=== PATIENT | female | born 2000 | race Caucasian/White ===

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

== ENCOUNTER 2024-04-12 07:17 | Day surgery (SDC) | payer OTHER ==
[2024-04-05 14:29] VITALS: BP 110/69
[~2024-04-12] VITALS: Ht 160 cm; Wt 77.3 kg
[~2024-04-12 07:17] MED LIST changes: +FAMOTIDINE 20 MG/ 2 ML VIAL IV SCH; +IBLOOD GLUCOSE TEST STRIP 1 EA TEST VI PRN; +LACTATED RINGER'S 1,000 ML IV SCH; +LIDOCAINE HCL 1% 5 ML SDV INJ ONE; +METOCLOPRAMIDE HCL 10 MG/2 ML SDV IV SCH; +PREDNISONE20 MG PO; +VENLAFAXINE H37.5 M1 PO; +ZITHROMAX250 MG PO
[2024-04-12 07:43] VITALS: BP 119/76
[2024-04-12] MEDS ORDERED: fentaNYL citrate 100 MCG/2 ML VIAL ONE (09:23)
[2024-04-12] MEDS ORDERED: propofoL 200 MG/20 ML VIAL ONE (09:24)
[2024-04-12] MEDS ORDERED: DEXAMETHASONE SOD PHOS 4 MG/ML VIAL ONE (09:24)
[2024-04-12] MEDS ORDERED: KETOROLAC TROMETHAMINE 30 MG/ML VIAL ONE (09:24)
[2024-04-12] MEDS ORDERED: ondansetron HCL 4 MG/2 ML VIAL ONE (09:24)
[2024-04-12] MEDS ORDERED: LIDOCAINE HCL 2% 5 ML SDV ONE (09:29)
[2024-04-12] MEDS ORDERED: BUPIVACAINE HCL 0.5% 10 ML SDV ONE (09:29)
[2024-04-12] MEDS ORDERED: ROCURONIUM BROMIDE 50 MG/5 ML SYR ONE ×2 (09:29→11:50)
[2024-04-12] MEDS ORDERED: ACETAMINOPHEN 1,000 MG/100 ML VIAL ONE (09:33)
[2024-04-12] MEDS ORDERED: KETAMINE in NS 50 MG/5 ML SYR ONE (09:33)
--- NOTE | 2024-04-12 10:01 | NUR ---
0945: CHECKED ON PATIENT. PATIENT UPDATED THAT DR STILL IN SURGERY. NO NEEDS AT THIS TIME. CALL LIGHT WITHIN REACH.
[2024-04-12] MEDS ORDERED: MIDAZOLAM HCL 2 MG/2 ML VIAL ONE (10:30)
[2024-04-12] MEDS ORDERED: LIDOCAINE HCL 4% 5 ML AMP ONE (10:32)
[2024-04-12] MEDS ORDERED: NALOXONE HCL 0.4 MG SYR IV PRN ×2 (11:00→12:30)
[2024-04-12] MEDS ORDERED: ondansetron HCL 4 MG/2 ML VIAL IV PRN ×2 (11:00→12:30)
[2024-04-12] MEDS ORDERED: droPERidol 5 MG/2 ML VIAL IV PRN (11:00)
[2024-04-12] MEDS ORDERED: IBLOOD GLUCOSE TEST STRIP 1 EA TEST VI PRN (11:00)
[2024-04-12] MEDS ORDERED: fentaNYL citrate 50 MCG/ML SDV IV PRN (11:00)
[2024-04-12] MEDS ORDERED: ePHEDrine sulfate 50 MG/ML AMP ONE (11:31)
[2024-04-12] MEDS ORDERED: SUGAMMADEX SODIUM 200 MG/2 ML ML ONE (11:55)
[2024-04-12] MEDS ORDERED: MAGNESIUM HYDROXIDE/AL HYDROX 30 ML CUP PO PRN (12:30)
[2024-04-12] MEDS ORDERED: LACTATED RINGER'S 1,000 ML IV SCH (12:30)
[2024-04-12] MEDS ORDERED: METOCLOPRAMIDE HCL 10 MG/2 ML SDV IV PRN (12:30)
[2024-04-12] MEDS ORDERED: PROCHLORPERAZINE EDISYLATE 10 MG/2 ML VIAL IV PRN (12:30)
[2024-04-12] MEDS ORDERED: FAMOTIDINE 20 MG TAB PO PRN (12:30)
[2024-04-12] MEDS ORDERED: ondansetron HCL 4 MG TAB PO PRN (12:30)
[2024-04-12] MEDS ORDERED: OXYCODONE HCL 5 MG TAB PO PRN (12:30)
[2024-04-12 13:10] VITALS: BP 109/59
--- NOTE | 2024-04-12 13:26 | NUR ---
04/12/24 1326 Trini Messer 1219 PT ARRIVED IN PACU SLEEPY LAYING ON RIGHT SIDE. 1237 CRYING AND C/O ABD PAIN 10. FENTANYL 50MCG GIVEN IVP. 1245 SITTING UP IN BED SIPPING ON WATER. WARM PACK PLACED ON ABD FOR COMFORT. 1256 NO CHANGE IN ABD PAIN. FENTANYL 50MCG GIVEN IVP. 1303 TO DS. REPORT GIVEN TO RN. PT TALKING ON PHONE.
--- NOTE | 2024-04-12 13:30 | NUR ---
1315: PATIENT BACK IN DAY SURGERY ROOM FROM PACU. RATES PAIN 5/10. GIVEN PUDDING TO EAT. THEN MEDICATED FOR PAIN WITH 1 TAB OF OXYCODONE. VS CHECKED. IV SITE WNL. 3 LAP SITES ON ABDOMEN WNL WITH SCANT AMOUNT OF DRAINAGE ON BANDAIDS. TOLERATING WATER. CALL LIGHT WITHIN REACH.
--- NOTE | 2024-04-12 13:46 | NUR ---
1340: PATIENT CALLED [facility] ([facility]) IN TO SOLVENT RECOVERER PRESCRIPTION AND GET IT FILLED BEFORE DISCHARGE. PRESCRIPTION GIVEN TO [facility] TO GO GET FILLED. PATIENT HAS NO NEEDS AT THIS TIME. CALL LIGHT WITHIN REACH.
[2024-04-12] MEDS ORDERED: ACETAMINOPHEN 500 MG TAB PO SCH (14:00)
[2024-04-12] MEDS ORDERED: IBUPROFEN 800 MG TAB PO SCH (14:00)
[2024-04-12 14:15] VITALS: BP 110/60
--- NOTE | 2024-04-12 15:31 | NUR ---
1415: VS CHECKED. DISCHARGE INSTRUCTIONS GIVEN TO PATIENT AND FRIEND. PATIENT ASSISTED OOB. PATIENT DRESSED INDEPENDENTLY WITH STAND BY ASSIST. STAND BY ASSIST WHILE PATIENT WALKED TO BATHROOM. VOID WITHOUT DIFFICULTY. GAIT STEADY BACK TO ROOM. 1440: PATIENT CONTINUES TO BE PAINFUL. MEDICATED WITH 1 TAB OF OXYCODONE. PATIENT RESTING IN BED. 1455: PATIENT STATES READY TO GO HOME. IV DC'D WNL. TIP INTACT. DRESSING APPLIED. PATIENT DISCHARGED TO HOME VIA WHEELCHAIR WITH FRIEND.
--- NOTE | 2024-04-17 11:44 | PATH ---
[facility] [address] [facility] [place] [place] [address] Signed SPECIMEN(S): A ENDOMETRIOSIS NODULE SPECIMEN SOURCE: A. ENDOMETRIOSIS NODULE CLINICAL HISTORY: Primary dysmenorrhea; pelvic pain; menorrhagia and irregular cycle FINAL PATHOLOGIC DIAGNOSIS: Nodule, site not specified, biopsy: - Consistent with endometriosis. - No malignancy identified [facility] MICROSCOPIC EXAMINATION: Histologic sections of all submitted blocks are examined by light microscopy. These findings, together with the gross examination, support the pathologic diagnosis. GROSS DESCRIPTION: The specimen, labeled and designated "Mac, endometriosis nodule," is received in formalin and consists of one pink-winn, soft, focally congested tissue fragment that measures 0.7 x 0.4 x 0.1 cm. Specimen is bisected and entirely submitted in (A1). JS (under the direct supervision of a pathologist) The Gross Description was prepared using a voice recognition system. The report was reviewed for accuracy; however, sound-alike word errors, addition and/or deletions may occur. If there is any question about this report, please contact Client Services. ADDITIONAL NOTES: Immunohistochemical and/or in situ hybridization studies if performed in this case included appropriate positive controls that reacted as expected. This test was developed and its performance characteristics determined by [facility]. It has not been cleared or approved by the U.S. Food and Drug Administration. The FDA has determined that such clearance or approval is not necessary. This test is used for clinical purposes. It should not be regarded as investigational or for research. [facility] is certified under the Clinical Laboratory Improvement Amendments of 1988 (CLIA) as qualified to perform high complexity clinical PATIENT NAME: BAKARI ABBOTT PATHOLOGY DATE OF : 01 REPORT #: [id number] PHYSICIAN: PAOLO ESTRADA PCP: BRIGID LOPEZ REPORT IS CONFIDENTIAL AND NOT TO BE RELEASED WITHOUT AUTHORIZATION [address], [place] [address] Signed laboratory testing. PERFORMING LABORATORY: Technical component was performed by [facility], [address] [place] [id number] (CLIA# [id number]). Professional interpretation was performed by [facility], [address] [place] [phone] (CLIA#: [id number]). Diagnostician: Tavon Sotomayor MD Pathologist Electronically Signed 04/17/2024 Copies: ~ PATIENT NAME: BAKARI ABBOTT PATHOLOGY DATE OF : 01 REPORT #: [id number] PHYSICIAN: PAOLO ESTRADA PCP: BRIGID LOPEZ REPORT IS CONFIDENTIAL AND NOT TO BE RELEASED WITHOUT AUTHORIZATION
--- NOTE | 2024-04-17 22:27 | OR ---
[facility] [address] [place], [place] [address] Signed DATE OF OPERATION: 04/12/2024 SURGEON: Flavia Sullivan MD POWDER HAND: SULLY Ruiz DO PREOPERATIVE DIAGNOSES: Primary dysmenorrhea, pelvic pain. POSTOPERATIVE DIAGNOSES: Primary dysmenorrhea, pelvic pain with diffuse pelvic endometriosis. PROCEDURE: Laparoscopy with fulguration of endometriosis, excision of endometriotic nodule. ANESTHESIA: General ET. ESTIMATED BLOOD LOSS: Minimal. DRAINS: None. INDICATIONS AND FINDINGS: The patient is a 23-year-old female with a long history of dysmenorrhea as well as some abnormal bleeding. She also has some pelvic pain. The patient was not interested in trying any medication to help prevent the pain and desired diagnosis. At the time of surgery, exam under anesthesia was normal. At the time of laparoscopy, there was diffuse superficial endometriosis over the posterior cul-de-sac as well as the right uterosacral ligament and behind the right ovary. There was an endometriotic nodule in the left posterior ovarian fossa. This was above the level of the ureter. The tubes and ovaries otherwise appeared normal as did the anterior cul-de-sac. PROCEDURE IN DETAIL: The patient was prepped and draped in the dorsal lithotomy position. An open-sided speculum was placed. The anterior lip of the cervix was visualized and grasped with a single-tooth tenaculum. The Hilaria cannula was then placed and the speculum removed. Attention was directed above. The infraumbilical area was injected with 0.5% Marcaine Electronically Signed By: FLAVIA SULLIVAN MD 04/17/24 2227 PATIENT NAME: BAKARI ABBOTT OPERATIVE REPORT DATE OF : 01 REPORT #: [id number] PHYSICIAN: FLAVIA SULLIVAN MD PCP: BRIGID LOPEZ REPORT IS CONFIDENTIAL AND NOT TO BE RELEASED WITHOUT AUTHORIZATION [facility] [address] [place], [place] [address] Signed plain. An incision was made with a knife, and each layer was serially elevated and incised until the fascia was opened and identified and stay sutures of 0 Vicryl placed. The peritoneum was opened sharply as it could not be entered bluntly. The Kacie cannula was placed and the balloon inflated. It was tied into place. Placement of the scope confirmed proper positioning. CO2 was then introduced into the abdomen. When the abdomen was appropriately distended, secondary ports were placed. The abdomen was transilluminated, injected with the Marcaine. Incision was made with a knife and a left-sided port placed using the 5 mm port. Following this, the pelvis was evaluated and the disease found. Another port was placed on the patient's right side. This was placed laterally again after transillumination, injection of the Marcaine, incision made, and the trocar placed under direct vision. The CO2 laser fiber was introduced. It was used as super pulse mode with a power of 10. The posterior cul de sac was completely treated with the laser to fulgurate all of the superficial endometriosis. The laser was also used on the right uterosacral ligament and the behind the right ovary. The nodule of endometriosis was grasped and scissors used to undermine the area superficially excising this completely. There was no remaining disease below this. Following this, the area was irrigated and bleeding points were controlled with cautery. Good hemostasis was noted. Because of the defect and the raw areas in the pelvis, Tisseel was sprayed over the defect in the peritoneum as well as over the posterior cul-de-sac. Following this, preparations were made for closure with removal of the instruments. As much CO2 as possible was allowed to escape. The instruments were removed and the fascial incision at the umbilicus was re-identified and was closed with a running suture of 0 Vicryl. The stay sutures were tied across as well. The skin incisions were closed with subcuticular sutures of 3-0 Vicryl Rapide. Attention was directed down below and the instruments were removed. The cervix was inspected. There was no evidence of any ongoing bleeding. The patient was taken to the recovery room in good condition. All sponge and needle counts were correct. Flavia Sullivan MD PJW/MODL /[id number] Electronically Signed By: FLAVIA SULLIVAN MD 04/17/24 2227 PATIENT NAME: BAKARI ABBOTT OPERATIVE REPORT DATE OF : 01 REPORT #: [id number] PHYSICIAN: FLAVIA SULLIVAN MD PCP: BRIGID LOPEZ REPORT IS CONFIDENTIAL AND NOT TO BE RELEASED WITHOUT AUTHORIZATION [address] [address] Signed Copies: ~ Electronically Signed By: FLAVIA SULLIVAN MD 04/17/24 2227 PATIENT NAME: BAKARI ABBOTT ODILON OPERATIVE REPORT DATE OF : 01 REPORT #: [id number] PHYSICIAN: FLAVIA SULLIVAN MD PCP: BRIGID LOPEZ REPORT IS CONFIDENTIAL AND NOT TO BE RELEASED WITHOUT AUTHORIZATION
== END 2024-04-12 14:55 | disposition home or self-care (01) ==
LOC: OPS 07:17 → DS 07:17 → OPS 07:30
PROVIDERS: ATTEND Obstetrics & Gynecology
PROC: 0UBF4ZZ Excision of Cul-de-sac, Percutaneous Endoscopic Approach (ICD-10-PCS; principal; 2024-04-12 10:00)
DX: N80.321 Superficial endometriosis of the posterior cul-de-sac (principal); D26.1 Other benign neoplasm of corpus uteri; N92.1 Excessive and frequent menstruation with irregular cycle; J45.20 Mild intermittent asthma, uncomplicated; Z79.899 Other long term (current) drug therapy; Z88.5 Allergy status to narcotic agent
CPT/HCPCS: 00840; A9270; J0131; J1100; J1885; J2001; J2250; J2405; J2704; J2765; J3010; J3490; J7121